=== PATIENT | female | born 1975 | race Asian ===

== ENCOUNTER 2016-09-27 06:58 | Day surgery (SDC) | payer OTHER ==
[~2016-09-27] VITALS: Ht 154.9 cm; Wt 52.2 kg
[2016-09-27] MEDS ORDERED: fentaNYL 0.05 MG/ML VIAL ONE (08:19)
[2016-09-27] MEDS ORDERED: MIDAZOLAM 2 MG/2 ML VIAL ONE (08:19)
[2016-09-27] MEDS ORDERED: LIDOCAINE 2% 100 MG/5 ML UJET TP ONE (08:19)
[2016-09-27] MEDS ORDERED: MIDAZOLAM 2 MG/2 ML VIAL IVP ONE (10:40)
[2016-09-27] MEDS ORDERED: fentaNYL 0.05 MG/ML VIAL IVP ONE (10:40)
== END 2016-09-27 09:35 | disposition home or self-care (01) ==
LOC: MDS 06:58 → MMU 07:01 → MDS 09:35
PROVIDERS: ATTEND Internal Medicine Gastroenterology
DX: K62.1 Rectal polyp (principal); K21.9 Gastro-esophageal reflux disease without esophagitis; I20.9 Angina pectoris, unspecified; D64.9 Anemia, unspecified
CPT/HCPCS: 36415; 43239; 45385; 86677; J2250; J3010; J7030